=== PATIENT | female | born 1995 | race American Indian/Alaskan Native ===

== ENCOUNTER 2018-01-09 13:23 | Emergency (ER) | payer SELFPAY ==
[2018-01-09 13:33] VITALS: BP 126/95
[2018-01-09] MEDS ORDERED: NORCO 7.5/325 PO ONE (14:44)
[2018-01-09] MEDS ORDERED: MOTRIN PO ONE (14:44)
--- NOTE | 2018-01-09 15:13 | XRay Report ---
AP PELVIS: HISTORY: Injury, pelvic pain. AP view of the pelvis shows normal pelvic contour and soft tissues. The hips are symmetric and within normal limits as are the sacroiliac joints. IMPRESSION: Normal pelvis.
--- NOTE | 2018-01-09 15:14 | XRay Report ---
LEFT RIBS, 3 VIEWS: History: pain. Routine views of the rib cage demonstrate normal mineralization with no significant contour abnormalities, fractures or destructive lesions. PA view of the chest demonstrates no underlying cardiopulmonary abnormalities, fluid or pneumothorax. IMPRESSION: Unremarkable left rib series.
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
== END 2018-01-09 16:03 | disposition home or self-care (01) ==
LOC: ED 13:23
DX: S20.212A Contusion of left front wall of thorax, initial encounter (principal); S30.810A Abrasion of lower back and pelvis, initial encounter; J45.909 Unspecified asthma, uncomplicated; V87.8XXA Person injured in other specified noncollision transport accidents involving motor vehicle (traffic), initial encounter; Y93.89 Activity, other specified; Y92.89 Other specified places as the place of occurrence of the external cause; Y99.8 Other external cause status
CPT/HCPCS: 72170; 99283

== ENCOUNTER 2018-11-26 21:54 | Emergency (ER) | payer SELFPAY | END 2018-11-26 22:10 | disposition left against medical advice (07) | LOC: ED 21:54 | DX: H53.8 Other visual disturbances (principal); Z53.21 Procedure and treatment not carried out due to patient leaving prior to being seen by health care provider ==

== ENCOUNTER 2018-12-22 01:20 | Inpatient (IN) | payer MEDICAID ==
[2018-12-22] MEDS ORDERED: BRETHINE SUB-Q PRN (03:17)
[2018-12-22] MEDS ORDERED: SUBLIMAZE IV PRN (03:17)
[2018-12-22] MEDS ORDERED: MINERAL OIL PO PRN (03:17)
[2018-12-22] MEDS ORDERED: AMPICILLIN/NS 2 GM/100 ML 2 GM/100 ML BAG IV ONE (03:17)
[2018-12-22] MEDS ORDERED: XYLOCAINE 2% INFILTRATI ONE ×2 (03:17→23:45)
--- NOTE | 2018-12-22 03:36 | History and Physical Report ---
History of Present Illness Date of examination: 12/22/18 Date of admission: 12/22/18 01:23 Chief complaint: Leaking of water from vagina History of present illness: 23 year old female presents at 39 weeks, 6 days gestation complaining of leaking of clear fluid from vagina since 01:00 today. Patient denies vaginal bleeding. Patient reports active movement. Patient received care at [facility] OB-EMERGING TECHNOLOGIES DIRECTOR. records are available. LMP 03/18/18. EDC 12/23/18 (confirmed by 9 week US). significant for the following: anemia (supplemented with iron), vitamin D deficiency (supplemented with Vitamin D), asthma (albuterol inhaler used prn). labs are as follows: A+, antibody screen negative, HIV negative, RPR nonreactive, hepatitis B surface antigen negative, rubella immune, varicella immune, hemoglobin electrophoresis negative, quad screen negative, 1 hour sugar test 77, chlamydia negative, gonorrhea negative, GBS unknown (no result on chart), pap smear negative. 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 denies: smoking, alcohol abuse, prescription drug abuse, IV drug use - Obstetrical History Expected Date of Delivery: 12/23/18 Actual Gestation: 39 Week(s) 6 Day(s) : 1 Para: 0 Hx # Term Pregnancies: 1 Number of Pregnancies: 0 Spontaneous Abortions: 0 Induced : 0 Number of Living Children: 0 Medications and Allergies Allergies Allergy/AdvReac Type Severity Reaction Status Date / Time No Known Allergies Allergy Verified 12/22/18 03:25 Home Medications Medication Instructions Recorded Confirmed Last Taken Type HYDROcodone/APAP 5-325 [[place] 1 each PO Q6HR PRN #15 tablet 01/09/18 12/22/18 Unknown Rx 5/325] Ibuprofen [Motrin] 800 mg PO Q8HR PRN #20 tablet 01/09/18 12/22/18 Unknown Rx methOCARBAMOL [Robaxin TAB] 500 mg PO Q6H PRN #15 tablet 01/09/18 12/22/18 Unknown Rx Active Meds: Active Medications Ephedrine Sulfate (Ephedrine Sulfate) 10 mg IV Q2M PRN PRN Reason: Hypotension Fentanyl (Sublimaze) 100 mcg IV Q2H PRN PRN Reason: Labor Pain Oxytocin/Sodium Chloride (Pitocin/Ns 20 Unit/1000ml Drip) 20 units in 1,000 mls @ 125 mls/hr IV DIRECT JOE Oxytocin/Sodium Chloride (Pitocin/Ns 30 Unit/500ml) 30 units in 500 mls @ 0 mls/hr IV TITR JOE; Protocol Lactated Ringer's (Lactated Ringers) 1,000 mls @ 125 mls/hr IV DIRECT JOE Ampicillin Sodium (Polycillin/Ns 2 Gm/100 Ml) 2 gm in 100 mls @ 100 mls/hr IV ONCE ONE; Protocol Stop: 12/22/18 04:16 Lidocaine (Xylocaine 2%) 20 ml INFILTRATI ONCE ONE Stop: 12/22/18 03:18 Mineral Oil (Mineral Oil) 30 ml PO QHS PRN PRN Reason: Constipation Terbutaline Sulfate (Brethine) 0.25 mg SUB-Q ONCE PRN PRN Reason: Hyperstimulation/Hypertonicity Review of Systems All systems: negative (leaking of fluid from vagina and irregular contractions) - Vital Signs Vital signs: Vital Signs Temp 98.4 F 12/22/18 03:02 Temp Pulse Resp BP Pulse Ox 98.4 F 81 107/59 12/22/18 03:02 12/22/18 03:03 12/22/18 03:03 - Physical Exam Abdomen: Positive: normal appearance, soft. Negative: distention, tenderness, guarding, rigidity Genitourinary (Female): Positive: normal external genitalia, normal perenium. Negative: perineal/vulvar lesions (no lesions seen on careful exam with bright light upon admission) Vagina: Positive: other (clear fluid seen leaking from vagina) Uterus: Positive: enlarged (size=dates) Anus/Rectum: Positive: normal perianal skin Extremities: Positive: normal. Negative: tenderness, edema - Obstetrical FHR: category 1 Uterine Contraction Monitor Mode: External Cervical Dilatation: 0 Cervical Effacement Percentage: 60 station: -1 Uterine Contraction Pattern: Irregular Uterine Contraction Intensity: Mild Results All other labs normal. Assessment and Plan A: at 39 weeks, 6 days gestation. Spontaneous rupture of membranes. Not in labor yet. GBS unknown. P: Admit. Continuous EFM. GBS prophylaxis. Pitocin augmentation of labor. Discussed with patient risks and benefits of Pitocin augmentation of labor. Patient consented to Pitocin augmentation of labor.
[2018-12-22] MEDS: LACTATED RINGERS 1,000 ML IV SCH ×2 (03:58→08:46)
[2018-12-22] MEDS ORDERED: PITOCin/NS 30 UNIT/500ML 30 UNITS/500 ML BAG IV SCH (04:00)
[2018-12-22] MEDS ORDERED: PITOCin/NS 20 UNIT/1000ML DRIP 20 UNITS/1,000 ML BAG IV SCH (04:00)
[2018-12-22 04:33] LABS: Hematocrit 31.8 % (30.3-42.9); Hemoglobin 10.8 gm/dl (10.1-14.3); Mean Corpuscular HGB Conc 34 % (30-34); Mean Corpuscular Volume 86 fl (79-97); Platelet Count 272 K/mm3 (140-440); Red Blood Count 3.69 M/mm3 (3.65-5.03); Red Cell Distribution Width 15.6 % (13.2-15.2)
--- NOTE | 2018-12-22 07:53 | Event Note ---
Date: 12/22/18 Patient is having labor augmented with Pitocin to due SROM prior to active labor. Pitocin has been at 8 milliunits per minute. Several late appearing heart rate declerations noted with minimal variability. Pitocin discontinued. O2 per face mask, IV fluid bolus given. Patient lying in left lateral position. Informed MD of heart rate tracing and interventions performed. Patient is afebrile. GBS prophylaxis is being provided due to GBS unknown.
[2018-12-22] MEDS: AMPICILLIN/NS 1 GM/50 ML 1 GM/50 ML BAG IV SCH ×4 (08:48→21:52)
--- NOTE | 2018-12-22 14:31 | Event Note ---
Date: 12/22/18 FHR baseline 140 with moderate variability and accelerations. Occasional brief variable FHR deceleration with rapid return to baseline. Dr. Fu reviewed FHR tracing. Dr. Fu recommends amnioinfusion. IUPC inserted to allow us to perform amnioinfusion. Cervix is 3/90/-1. Forebag ruptured with small amount of clear fluid noted. IUPC inserted without difficulty. Pitocin at 8 milliunits per minute. Uterus palpates soft between contractions. Contractions every 3 minutes. Patient has received Fentanyl for pain. She is also receiving Ampicillin IV every 4 hours. Patient is afebrile. VSS.
[2018-12-22] MEDS ORDERED: NACL 0.9% 1000 ML 1,000 ML VG SCH ×3 (14:34→15:00)
[2018-12-22] MEDS ORDERED: ZOFRAN IV ONE (14:55)
[2018-12-22] MEDS ORDERED: ZOFRAN ONE (14:58)
[2018-12-22] MEDS ORDERED: LACTATED RINGERS 3,000 ML ONE (16:04)
[2018-12-22] MEDS ORDERED: NARCAN 2 MG/2 ML IV PRN (16:34)
[2018-12-22] MEDS ORDERED: ZOFRAN IV PRN (16:34)
[2018-12-22] MEDS ORDERED: fentaNYL-BUPIV 2 MCG/ML-0.125% 200 MCG/100 ML BAG EPIDURAL SCH (17:00)
--- NOTE | 2018-12-22 17:15 | Event Note ---
Date: 12/22/18 Patient has received epidural and is comfortable. SVE /-1. Category 1 heart rate tracing.
--- NOTE | 2018-12-22 19:10 | Event Note ---
Date: 12/22/18 Patient is 4.5/95/-1. FHR baseline 130 with moderate variability and accelerations. Occasional early deceleration. Occasional variable FHR decelera tion with rapid return to baseline. Patient has epidural and amnioinfusion. Pitocin at 10 milliunits per minute. Patient has been afebrile. She is receiving Ampicillin. Confirmed GBS negative from records obtained today. Now prolonged rupture of membranes [address] Fu re: prolonged rupture of membranes now and cervical exam. Dr. Fu states it is OK to allow patient to continue to labor.
--- NOTE | 2018-12-22 21:15 | Event Note ---
Date: 12/22/18 Several late appearing FHR decelerations noted with minimal variability. SVE 5/90/-1. Pitocin turned off, O2 per face mask, and lateral positioning. Contractions have been adequate. Consulted with Dr. Fu re: heart rate tracing. Dr. Fu states she is coming in to evaluate patient.
[2018-12-23] MEDS ORDERED: DULCOLAX PR PRN (00:21)
[2018-12-23] MEDS ORDERED: MILK OF MAGNESIA PO PRN (00:21)
[2018-12-23] MEDS ORDERED: TUCKS PAD TP PRN (00:21)
[2018-12-23] MEDS ORDERED: LANSINOH TP PRN (00:21)
[2018-12-23] MEDS ORDERED: BENADRYL PO PRN (00:21)
--- NOTE | 2018-12-23 00:29 | Procedure Note ---
OB Delivery Note - Delivery Date of Delivery: 12/23/18 Surgeon: NERI MENDES Estimated blood loss: other (250 cc) - Vaginal Delivery presentation: vertex Delivery position: OA Intrapartum events: none Delivery augmentation: pitocin Delivery monitor: external FHT, external uterine, internal uterine Route of delivery: Delivery placenta: spontaneous Delivery cord: 3 umbilical vessels Episiotomy: none Delivery laceration: none Anesthesia: local, epidural Delivery comments: Spontaneous vaginal delivery at 00:04 of liveborn female weighing 7 lb. 4 oz. over intact perineum with apgars of 8/9. Epidural anesthesia. Baby placed immediately skin to skin with mom after . Spontaneous cry and respirations. Baby dried and bulb suctioned. Spontaneous delivery of intact placenta and membranes by Mariscal mechanism. EBL 250 cc. Pitocin to IV fluids after delivery of placenta. Fundus firm and midline. No lacerations noted. Vaginal sweep negative. Sponge count correct. Mother and baby stable in birthing room.
[2018-12-23] MEDS ORDERED: SODIUM CHLORIDE FLUSH SYRINGE 10 ML IV PRN (01:00)
[2018-12-23] MEDS: IBUPROFEN PO SCH ×5 (01:52→23:43)
[2018-12-23] MEDS: NORCO 5/325 PO PRN ×2 (03:11→18:00)
[2018-12-23 12:31] LABS: Hematocrit 29.7 % (30.3-42.9)
[2018-12-24] MEDS: NORCO 5/325 PO PRN ×2 (01:17→23:04)
[2018-12-24] MEDS: IBUPROFEN PO SCH ×4 (05:50→23:01)
[2018-12-24] MEDS ORDERED: BOOSTRIX IM ONE (06:00)
--- NOTE | 2018-12-24 09:48 | Progress Note ---
Assessment and Plan - Patient Problems (1) (normal spontaneous vaginal delivery) Current Visit: Yes Status: Acute Plan to address problem: Continue routine PP orders Anticipate d/c home in 24-48 hours (2) Anemia Current Visit: Yes Status: Acute Qualifiers: Anemia type: iron deficiency Iron deficiency anemia type: inadequate dietary iron intake Qualified Code(s): D50.8 - Other iron deficiency anemias Plan to address problem: Continue po iron supplementation as ordered Subjective - Subjective Date of service: 12/24/18 Principal diagnosis: ; Anemia Interval history: See Admission H & P and OB delivery summary Patient reports: appetite normal, voiding normally, pain well controlled, flatus, ambulating normally, no bowel movement Bruno: doing well (is under Bili lights at bedside), bottle feeding (and breast feeding) Objective - Vital Signs Latest vital signs: Vital Signs Temp Pulse Resp BP BP Pulse Ox 12/24/18 07:45 97.6 F 66 16 93/41 100 12/24/18 06:32 18 12/24/18 05:50 18 12/24/18 02:17 18 12/24/18 01:17 18 12/24/18 01:05 98.4 F 63 20 107/53 97 12/24/18 00:43 18 12/23/18 23:43 18 12/23/18 12:13 98.9 F 87 18 106/61 99 Intake and Output 12/23/18 12/24/18 12/24/18 23:59 07:59 15:59 Intake Total 240 360 Balance 240 360 Intake: Oral 360 Intake, Free Water 240 Other: Total, Intake Amount 120 # Voids Void 1 1 - Exam Breasts: Present: normal Cardiovascular: Present: Regular rate Lungs: Present: Normal air movement Abdomen: Present: soft, normal bowel sounds Uterus: Present: firm, fundal height below umbilicus (U-1) Extremities: Present: normal Deep Tendon Reflex Grade: Normal +2 - Labs Labs: Abnormal lab results 12/23/18 Range/Units 12:22 Hgb 10.0 L (10.1-14.3) gm/dl Hct 29.7 L (30.3-42.9) %
[2018-12-24] MEDS: FEOSOL PO SCH ×2 (11:39→21:40)
--- NOTE | 2018-12-24 15:11 | Vascular Lab Report ---
PROCEDURE: VL VENOUS DUPLEX LE RT TECHNIQUE: Duplex Doppler sonography of the right leg . Valdes scale imaging with and without compress ion, spectral waveform analysis with and without augmentation, and color flow Doppler were employed. HISTORY: right calf pain. Please do at bedside COMPARISONS: None FINDINGS: Normal compressibility, vascular patency, and augmentation are present diffusely throughout the visua lized portion of the deep veins. No abnormal intraluminal echoes are visualized to suggest deep vein thrombus. IMPRESSION: No sonographic evidence of right leg DVT This document is electronically signed by Reji Daniels MD., Dec 24 2018 03:10:10 PM ET
[2018-12-25] MEDS: IBUPROFEN PO SCH ×2 (05:47→12:21)
--- NOTE | 2018-12-25 06:54 | Discharge Summary ---
Providers - Providers Date of Admission: 12/22/18 01:23 Date of discharge: 12/25/18 (1200) Attending physician: FOZIA CHEN MD Primary care physician: FOZIA CHEN MD Hospitalization Reason for admission: rupture of membranes Delivery: Episiotomy: none Laceration: none Other procedures: none complications: none Discharge diagnosis: IUP at term delivered, other (Anemia) baby: female Hospital course: See admission H & P, OB delivery summary and PP progress orders Condition at discharge: Stable Disposition: DC-01 TO HOME OR SELFCARE - Discharge Diagnoses (1) (normal spontaneous vaginal delivery) Status: Acute (2) Anemia Status: Acute Qualifiers: Anemia type: iron deficiency Iron deficiency anemia type: inadequate dietary iron intake Qualified Code(s): D50.8 - Other iron deficiency anemias Plan - Provider Discharge Summary Activity: routine, no sex for 6 weeks, no heavy lifting 4 weeks, no strenuous exercise Diet: routine Instructions: routine Additional instructions: [] Smoking cessation referral if applicable(refer to patient education folder for contact #) [] Refer to [facility] Booklet Call your doctor immediately for: * Fever > 100.5 * Heavy vaginal bleeding ( >1 pad per hour) * Severe persistent headache * Shortness of breath * Reddened, hot, painful area to leg or breast * Drainage or odor from incision. * Continue to take daily iron supplementation twice daily as ordered - Follow up plan Follow up: FOZIA CHEN MD [Primary Care Provider] - 6 Weeks
[2018-12-25] MEDS: FEOSOL PO SCH (10:01)
[2018-12-25 13:22] VITALS: BP 123/68
== END 2018-12-25 13:40 | disposition home or self-care (01) | DRG 775 ==
LOC: TRG 01:20 → LD 01:23 → OB 12-23 01:27
PROVIDERS: ADMIT Obstetrics & Gynecology; ATTEND Obstetrics & Gynecology
PROC: 10H07YZ Insertion of Other Device into Products of Conception, Via Natural or Artificial Opening (ICD-10-PCS; 2018-12-22)
PROC: 10E0XZZ Delivery of Products of Conception, External Approach (ICD-10-PCS; principal; 2018-12-23)
PROC: 3E0R3BZ Introduction of Anesthetic Agent into Spinal Canal, Percutaneous Approach (ICD-10-PCS; 2018-12-23)
PROC: 00HU33Z Insertion of Infusion Device into Spinal Canal, Percutaneous Approach (ICD-10-PCS; 2018-12-23)
PROC: 3E0E7GC Introduction of Other Therapeutic Substance into Products of Conception, Via Natural or Artificial Opening (ICD-10-PCS; 2018-12-23)
PROC: 3E0234Z Introduction of Serum, Toxoid and Vaccine into Muscle, Percutaneous Approach (ICD-10-PCS; 2018-12-24)
DX: O99.52 Diseases of the respiratory system complicating childbirth (principal); Z3A.39 39 weeks gestation of pregnancy; Z37.0 Single live birth; O76 Abnormality in fetal heart rate and rhythm complicating labor and delivery; O99.02 Anemia complicating childbirth; O63.9 Long labor, unspecified; D50.8 Other iron deficiency anemias; J45.909 Unspecified asthma, uncomplicated; Z83.3 Family history of diabetes mellitus; Z82.49 Family history of ischemic heart disease and other diseases of the circulatory system; Z82.3 Family history of stroke; Z82.0 Family history of epilepsy and other diseases of the nervous system; Z82.5 Family history of asthma and other chronic lower respiratory diseases; Z23 Encounter for immunization
CPT/HCPCS: 36415; 85014; 85018; 85027; 86592; 86850; 86900; 86901; 90471; 90715; G0378; J0290; J2405; J2590; J3010; J7030; J7120